=== PATIENT | male | born 1950 | race African-American/Black ===

== ENCOUNTER 2018-12-25 01:55 | Emergency (ER) | payer OTHER, BC ==
--- NOTE | 2018-12-25 02:38 | ER ---
Nurse's Notes [facility] Name: Richard Ford III Age: 68 yrs Sex: Male : 1950 Arrival Date: 12/25/2018 Time: 01:57 Bed 17 Private MD: Diagnosis: Foreign body in right ear Presentation: 12/25 02:00 Presenting complaint: Patient states: "Since Wednesday a part of my hearing aide's been cc3 stuck in my right ear". Transition of care: patient was not received from another setting of care. Onset of symptoms was December 21, 2018. Risk Assessment: Do you want to hurt yourself or someone else? Patient reports no desire to harm self or others. Initial Sepsis Screen: Does the patient meet any 2 criteria? No. Patient's initial sepsis screen is negative. Does the patient have a suspected source of infection? No. Patient's initial sepsis screen is negative. Care prior to arrival: None. 02:00 Method Of Arrival: Ambulatory cc3 02:00 Acuity: TAMIKO 4 cc3 Triage Assessment: 02:00 General: Appears in no apparent distress. uncomfortable, Behavior is calm, cooperative, cc3 appropriate for age. Pain: Complains of pain in right ear Pain currently is 10 out of 10 on a pain scale. Quality of pain is described as aching. EENT: Reports pain in right ear. Neuro: Level of Consciousness is awake, alert, obeys commands, Oriented to person, place, time, situation, Appropriate for age. Cardiovascular: Denies chest pain, Heart tones S1 S2 present Capillary refill < 3 seconds in bilateral fingers Patient's skin is warm and dry. Respiratory: Airway is patent Respiratory effort is even, unlabored, Respiratory pattern is regular, symmetrical, Breath sounds are clear bilaterally. GI: Abdomen is round non-distended. : No signs and/or symptoms were reported regarding the genitourinary system. Derm: Skin is intact, is healthy with good turgor, Skin is pink, warm \\T\\ dry. normal. Musculoskeletal: Circulation, motion, and sensation intact. Range of motion: intact in all extremities. Historical: - Allergies: 02:00 PENICILLINS; cc3 - PMHx: 02:00 Hypertension; cc3 - PSHx: 02:00 neck surgery; cc3 - Immunization history:: Adult Immunizations up to date. - Social history:: Smoking status: Patient/guardian denies using tobacco, the patient reports quitting approximately 10 years ago. - Ebola Screening: : No symptoms or risks identified at this time. Screenin:00 Abuse screen: Denies threats or abuse. Denies injuries from another. Nutritional cc3 screening: No deficits noted. Tuberculosis screening: No symptoms or risk factors identified. Fall Risk Ambulatory Aid- None/Bed Rest/Nurse Assist (0 pts). Gait- Normal/Bed Rest/Wheelchair (0 pts) Mental Status- Oriented to own ability (0 pts). Assessment: 02:00 General: see triage assessment. cc3 02:50 Reassessment: Patient appears in no apparent distress at this time. Patient and/or cc3 family updated on plan of care and expected duration. Pain level reassessed. Patient is alert, oriented x 3, equal unlabored respirations, skin warm/dry/pink. CURT Romero discharged the patient home with prescription given. No IV cannula in situ. Patient left ER vitally stable and ambulatory with his . No valuables left in the patient's room. Patient states feeling better. Patient states symptoms have improved. Vital Signs: 02:00 BP 149 / 87; Pulse 70; Resp 17 S; Temp 98.3(O); Pulse Ox 97% on R/A; Weight 99.79 kg cc3 (R); Height 5 ft. 6 in. (167.64 cm) (R); Pain 10/10; 02:30 BP 144 / 88; Pulse 71; Resp 18 S; Pulse Ox 97% on R/A; cc3 02:00 Body Mass Index 35.51 (99.79 kg, 167.64 cm) cc3 ED Course: 01:57 Patient arrived in ED. ds1 02:00 Patient has correct armband on for positive identification. Bed in low position. Call cc3 light in reach. Side rails up X 1. Pulse ox on. NIBP on. 02:00 Arm band placed on right wrist. Patient notified of wait time. cc3 02:02 Chavez Romero PA is PHCP. cp 02:02 Chavez Jj MD is Attending Physician. cp 02:20 Jacquelin Coppola is Primary Nurse. cc3 02:24 Triage completed. cc3 02:37 Fifi Diaz MD is Referral Physician. cp 02:50 No provider procedures requiring assistance completed. Patient did not have IV access cc3 during this emergency room visit. Administered Medications: No medications were administered Outcome: 02:37 Discharge ordered by . cp 02:50 Discharged to home ambulatory, with family. cc3 02:50 Condition: stable 02:50 Discharge instructions given to patient, family, Instructed on discharge instructions, follow up and referral plans. medication usage, Demonstrated understanding of instructions, follow-up care, medications, Prescriptions given X 1. 02:57 Patient left the ED. cc3 Signatures: Melissa Mathew ds1 Chavez Roemro PA PA cp Jacquelin Coppola cc3
--- NOTE | 2018-12-25 02:38 | EDPHYS ---
Physician Documentation [facility] Name: Richard Ford III Age: 68 yrs Sex: Male : 1950 Arrival Date: 12/25/2018 Time: 01:57 Bed 17 Private MD: ED Physician Chavez Jj HPI: 12/25 02:10 This 68 yrs old Black Male presents to ER via Ambulatory with complaints of Foreign cp Body In Ear. 02:10 The patient presents with a foreign body sensation, piece of plastic from hearing aid, cp pain, that is acute. 02:10 The complaints affect the right ear. Onset: The symptoms/episode began/occurred today. cp Associated signs and symptoms: Pertinent negatives: cough, fever, rhinorrhea, sinus trouble, sore throat, tinnitus, vertigo, vomiting. Severity of symptoms: in the emergency department the symptoms are unchanged despite home interventions. Historical: - Allergies: 02:00 PENICILLINS; cc3 - PMHx: 02:00 Hypertension; cc3 - PSHx: 02:00 neck surgery; cc3 - Immunization history:: Adult Immunizations up to date. - Social history:: Smoking status: Patient/guardian denies using tobacco, the patient reports quitting approximately 10 years ago. - Ebola Screening: : No symptoms or risks identified at this time. ROS: 02:15 Constitutional: Negative for body aches, chills, fever, poor PO intake. cp 02:15 Eyes: Negative for injury, pain, redness, and discharge. cp 02:15 ENT: Positive for ear pain, foreign body sensation, Negative for sore throat, difficulty swallowing, difficulty handling secretions. 02:15 Respiratory: Negative for cough, shortness of breath, wheezing. 02:15 Abdomen/GI: Negative for abdominal pain, nausea, vomiting, and diarrhea. 02:15 Skin: Negative for cellulitis, rash. 02:15 Neuro: Negative for altered mental status, headache, weakness. 02:15 All other systems are negative. Exam: 02:25 Constitutional: The patient appears in no acute distress, alert, awake, non-toxic, well cp developed, well nourished, uncomfortable. 02:25 Head/Face: Normocephalic, atraumatic. cp 02:25 Eyes: Periorbital structures: appear normal, Conjunctiva: normal, no exudate, no injection, Lids and lashes: appear normal, bilaterally. 02:25 ENT: External ear(s): are unremarkable, Ear canal(s): foreign body, a piece of plastic, in the right external ear canal, TM's: dullness, bilaterally, Nose: is normal, Mouth: is normal, Posterior pharynx: Airway: no evidence of obstruction, patent. 02:25 Neck: ROM/movement: is normal, is supple, without pain, no range of motions limitations, no nuchal rigidity. 02:25 Chest/axilla: Inspection: normal. 02:25 Cardiovascular: Rate: normal, Rhythm: regular. 02:25 Respiratory: the patient does not display signs of respiratory distress, Respirations: normal, no use of accessory muscles, no splinting, no tachypnea. 02:25 Abdomen/GI: Inspection: abdomen appears normal. 02:25 Skin: cellulitis, is not appreciated, no rash present. Vital Signs: 02:00 BP 149 / 87; Pulse 70; Resp 17 S; Temp 98.3(O); Pulse Ox 97% on R/A; Weight 99.79 kg cc3 (R); Height 5 ft. 6 in. (167.64 cm) (R); Pain 10/10; 02:30 BP 144 / 88; Pulse 71; Resp 18 S; Pulse Ox 97% on R/A; cc3 02:00 Body Mass Index 35.51 (99.79 kg, 167.64 cm) cc3 Procedures: 02:35 Foreign Body Removal: piece of plastic, from the right ear canal, by using alligator cp clamps, The patient tolerated the removal well. MDM: 02:03 Patient medically screened. [facility] 02:35 Differential diagnosis: otitis media, otitis externa, foreign body, acute otalgia, cp cerumen impaction, barotrauma . 02:37 Data reviewed: vital signs, nurses notes, and as a result, I will discharge patient. 02:37 Counseling: I had a detailed discussion with the patient and/or guardian regarding: the cp historical points, exam findings, and any diagnostic results supporting the discharge/admit diagnosis, to return to the emergency department if symptoms worsen or persist or if there are any questions or concerns that arise at home. Response to treatment: the patient's symptoms have markedly improved after treatment. Administered Medications: No medications were administered Disposition: 12/25/18 02:37 Discharged to Home. Impression: Foreign body in right ear. - Condition is Stable. - Discharge Instructions: Ear Foreign Body. - Prescriptions for Ciprodex 0.3- 0.1 % Otic Drops, Suspension - instill 4 drops by OTIC route every 12 hours for 7 days , for ears ONLY. instill drops in right ear canal as directed; 1 Container. - Medication Reconciliation Form, Thank You Letter, Antibiotic Education, Prescription Opioid Use form. - Follow up: Fifi Diaz MD; When: 2 - 3 days; Reason: Worsening of condition. - Problem is new. - Symptoms have improved. Addendum: 12/26/2018 07:56 Co-signature as Attending Physician, Chavez Jj MD I agree with the assessment and c lopez plan of care. Signatures: Chavez Jj MD MD cha Page, Corey, PA PA Jacquelin Woodward cc3 Corrections: (The following items were deleted from the chart) 12/25 02:57 02:37 12/25/2018 02:37 Discharged to Home. Impression: Foreign body in right ear. cc3 Condition is Stable. Forms are Medication Reconciliation Form, Thank You Letter, Antibiotic Education, Prescription Opioid Use. Follow up: Fifi Diaz; When: 2 - 3 days; Reason: Worsening of condition. Problem is new. Symptoms have improved. cp
[2018-12-25 04:16] VITALS: TEMP 98.3; O2SAT 97
[2018-12-25 04:18] VITALS: BP 144/88
== END 2018-12-25 02:57 | disposition home or self-care (01) ==
LOC: ER 01:55
PROC: 09C0XZZ Extirpation of Matter from Right External Ear, External Approach (ICD-10-PCS; principal; 2018-12-25)
DX: T16.1XXA Foreign body in right ear, initial encounter (principal); X58.XXXA Exposure to other specified factors, initial encounter; Y93.9 Activity, unspecified; Y92.9 Unspecified place or not applicable; Z88.0 Allergy status to penicillin
CPT/HCPCS: 99283